=== PATIENT | female | born 1985 | race Two or more races ===

== ENCOUNTER 2023-12-15 22:49 | Inpatient (IN) | payer OTHER ==
[~2023-12-15] VITALS: Ht 160 cm; Wt 74.8 kg
--- NOTE | 2023-12-15 22:54 | NUR ---
SE RECIBE FEMENINA DESORIENTADA X3 CON MOVIMIENTOS INVOLUNTARIOS Y NO SIGUE COMANDOS. FAMILIAR VERBALIZA QUE INGUIRIO UN GUMMIES DE CANABIS.
[2023-12-15] MEDS ORDERED: LevETIRAcetam 500 MG/5 ML VIAL IV ONE ×2 (23:00→23:45)
[2023-12-15] MEDS ORDERED: LORazepam 2 MG/ML VIAL IM ONE ×2 (23:00→23:45)
[2023-12-15] MEDS ORDERED: 0.9 % SODIUM CHLORIDE 1,000 ML IV ONE (23:00)
[2023-12-15] MEDS ORDERED: LORazepam 2 MG/ML VIAL ONE ×2 (23:16→23:36)
[2023-12-15 23:24] LABS: HEMATOCRIT 33.8 % (36.0-45.00); HEMOGLOBIN 11.5 g/dL (12.0-15.00); MEAN CORPUSCULAR HEMOGLOBIN 28.3 pg (27.00-32.0); PLATELET COUNT 301 K/uL (150-450); RED BLOOD COUNT 4.07 M/uL (4.00-6.00); RED CELL DISTRIBUTION WIDTH 14.7 % (11.5-14.5)
--- NOTE | 2023-12-15 23:29 | NUR ---
PTE ALERTA Y ACTIVA SE LE ORIENTA A JENNIFER SOBRE TX MEDICO LO CUAL REFIERE ENTENDER Y ACEPTAR . SE LE ADMINISTRA MEDICAMENTOS BRODERICK ORDEN MEDICA Y SE LE REALIZA MUESTRAS DE LAB BAJO MEDIDAS ASEPTICAS. TIENE PENDIENTE DRUG SCREEN.
[2023-12-15] MEDS ORDERED: POTASSIUM CHLORIDE/NACL 0.9% 20 MEQ/1,000 ML PIGGYBAG IV ONE ×2 (23:45→23:57)
[2023-12-15 23:52] LABS: ALBUMIN 3.4 gm/dL (3.4-5.0); BILIRUBIN TOTAL 0.24 mg/dL (0.3-1.2); CALCIUM 8.1 mg/dL (8.5-10.1); CREATININE SERUM 1.09 mg/dL (0.55-1.02); GFR 55.59; GLOBULINA 3.8 G/DL (2.4-3.5); TOTAL PROTEIN 7.2 gm/dL (6.4-8.2)
[2023-12-15 23:59] LABS: POTASSIUM 2.88 mEq/L (3.5-5.1)
[2023-12-16] MEDS ORDERED: POTASSIUM CHLORIDE IN 0.9%NACL 40 MEQ/1,000 ML PIGGYBAG IV ONE (01:00)
[2023-12-16 04:52] LABS: COCAINE NEGATIVE (NEGATIVE); METHADONE NEGATIVE (NEGATIVE); OPIATES NEGATIVE (NEGATIVE); THC ( Cannabinoids) POSITIVE (NEGATIVE)
--- NOTE | 2023-12-16 07:31 | NUR ---
SE RECIBE A PACIENTE ALERTA Y ORIENTADA X3 DEL TURNO ANTERIOR CON BUEN PATRON RESPIRATORIO. AL MOMENTO PACIENTE CANALIZADA CON #18 EN LT HAND, PATENTE, VELMA DE EDEMA Y ERITEMA Y BAJANDO IVFS BRODERICK ORDEN MEDICA. EXTREMIDADES SUPERIORES SE OBSERVAN LIBRES DE EDEMA Y ERITEMA. ABDOMEN BLANDO SIN DOLOR AL TACTO. PACIENTE ORINA DE MANERA ESPONTANEA CON PRIVILEGIOS DE MEL. EXTREMIDADES INFERIORES SE OBSERVAN LIBRES DE EDEMA Y ERITEMA. AL MOMENTO PACIENTE SE MANTIENE EN CAMA A NIVEL DE PISO JUNTO CON BARRANDAS ELEVADAS. PENDIENTE A CONSULTA CON [place].
[2023-12-16] MEDS ORDERED: LevETIRAcetam 500 MG/5 ML VIAL IV SCH (09:20)
[2023-12-16] MEDS ORDERED: FAMOTIDINE/PF 20 MG in 0.9 % SODIUM CHLORIDE 100 ML IV SCH (09:20)
[2023-12-16] MEDS ORDERED: 0.9 % SODIUM CHLORIDE 1,000 ML IV SCH (09:30)
[2023-12-16] MEDS ORDERED: POTASSIUM CHLORIDE IN WATER 100 ML IV SCH (09:30)
[2023-12-16 10:07] LABS: ABG PH 7.412 (7.35-7.45); ABG PO2 97.3 mmHg (80-100); ABG pCO2 32.8 mmHg (35-45); BASE EXCESS -3.2 mmol/l; BICARBONATE 20.4 mmol/l (23-25); SaO2 97.5 %; Tco2 21.5 mmol/l
[2023-12-16 10:16] LABS: allen test SATISFACTORY; o2 21 %; puncture site RADIAL LEFT
[2023-12-16] MEDS ORDERED: POTASSIUM CHLORIDE 20MEQ/100ML H2O PB IV ONE (10:53)
[2023-12-16] MEDS ORDERED: FAMOTIDINE/PF 20 MG/2 ML VIAL ONE (10:53)
[2023-12-16 11:36] LABS: MAGNESIUM 2.4 mg/dL (1.8-2.4); PHOSPHOROUS 2.1 mg/dL (2.5-4.9)
[2023-12-16 13:18] VITALS: BP 128/73; O2SAT 100
[2023-12-16 15:40] VITALS: BP 116/60; O2SAT 97
[2023-12-16] MEDS ORDERED: NAPH,MB-DB/K PH,MBDB 1 PKT PACKET PO SCH (17:00)
[2023-12-16] MEDS ORDERED: POTASSIUM CHLORIDE 10 MEQ CAPSULE PO SCH (17:06)
[2023-12-16 20:05] VITALS: O2SAT 97
[2023-12-16] MEDS ORDERED: SODIUM CL 0.9% 100 ML IV.SOLN IV ONE (21:35)
[2023-12-16 22:58] VITALS: BP 142/83; O2SAT 100
[2023-12-17 01:00] VITALS: O2SAT 97
[2023-12-17 02:26] VITALS: BP 148/88; O2SAT 98
[2023-12-17 05:00] VITALS: O2SAT 98
[2023-12-17 07:00] LABS: BILIRUBIN TOTAL 0.41 mg/dL (0.3-1.2); CALCIUM 8.2 mg/dL (8.5-10.1); CREATININE SERUM 0.81 mg/dL (0.55-1.02); GFR 78.31; GLOBULINA 3.2 G/DL (2.4-3.5); POTASSIUM 4.34 mEq/L (3.5-5.1); TOTAL PROTEIN 6.2 gm/dL (6.4-8.2)
[2023-12-17 09:01] VITALS: BP 148/87; O2SAT 98
== END 2023-12-17 13:02 | disposition home or self-care (01) | DRG 641 ==
LOC: ER 22:51 → SEC-K 12-16 10:28 → MEDI 12-16 10:28 → SEC-K 12-16 10:33 → MEDI 12-16 16:23
PROVIDERS: General Practice; ADMIT Internal Medicine; ATTEND Internal Medicine
PROC: 4A12X4Z Monitoring of Cardiac Electrical Activity, External Approach (ICD-10-PCS; principal; 2023-12-16)
DX: E86.0 Dehydration (principal); E87.6 Hypokalemia; R10.9 Unspecified abdominal pain; Z20.822 Contact with and (suspected) exposure to COVID-19; R00.0 Tachycardia, unspecified; F19.929 Other psychoactive substance use, unspecified with intoxication, unspecified